=== PATIENT | male | born 1970 | race Caucasian/White ===

== ENCOUNTER 2017-05-29 20:47 | Emergency (ER) | payer BC ==
[~2017-05-29] VITALS: Ht 188 cm; Wt 106.0 kg
[2017-05-29] MEDS ORDERED: MORPHINE SULFATE 4 MG/ML, 1ML ONE (21:29)
[2017-05-29] MEDS ORDERED: ASPIRIN 81 MG TABLET CHEW ONE (21:30)
[2017-05-29] MEDS ORDERED: ONDANSETRON 2MG/ML, 2ML ONE (21:30)
[2017-05-29] MEDS ORDERED: SODIUM CHLORIDE 0.9% 1,000ML IVBOLUS ONE (21:30)
[2017-05-29] MEDS ORDERED: ASPIRIN 81 MG TABLET CHEW PO ONE (21:30)
[2017-05-29] MEDS ORDERED: MORPHINE SULFATE 4 MG/ML, 1ML IVPush PRN (21:30)
[2017-05-29] MEDS ORDERED: SODIUM CHLORIDE FLUSH 10ML SYR IVF ONE (21:30)
[2017-05-29] MEDS ORDERED: ONDANSETRON 2MG/ML, 2ML IVPush ONE (21:30)
[2017-05-29 22:01] LABS: ASPARTATE AMINO TRANSFERASE 16 U/L (15-37); BLOOD UREA NITROGEN 14 mg/dL (7-18)
[2017-05-29 22:07] LABS: IS PT STATUS REG ER OR PRE ER? YES
[2017-05-29 22:53] VITALS: BP 131/82
== END 2017-05-29 22:56 | disposition home or self-care (01) ==
LOC: ED 22:41
DX: M54.2 Cervicalgia (principal); M25.519 Pain in unspecified shoulder
CPT/HCPCS: 36415; 71020; 80053; 84484; 85025; 93005; 96360; 99285; J7030